=== PATIENT | male | born 1925 | race Caucasian/White ===

== ENCOUNTER 2016-03-09 10:57 | Inpatient (IN) | payer MEDICARE, BC ==
[~2016-03-09] VITALS: Ht 185.4 cm; Wt 80.8 kg
[2016-03-09] MEDS ORDERED: ONDANSETRON 4 MG VIAL ONE (13:57)
[2016-03-09] MEDS ORDERED: SODIUM CHLORIDE 0.9% 1,000 ML ONE (13:57)
[2016-03-09] MEDS ORDERED: SALINE FLUSH 10 ML FLUSH PRN (17:55)
[2016-03-09] MEDS ORDERED: ONDANSETRON 4 MG VIAL IV PRN (17:55)
[2016-03-09] MEDS ORDERED: SODIUM CHLORIDE 0.9% 1,000 ML IV ONE (17:55)
[2016-03-09 19:06] VITALS: BP_SYST 152; BP_SYST 92; RESP 18; TEMP 97.8
[2016-03-09] MEDS ORDERED: Flu Vaccine Quadrivalent 60 MCG/0.5 ML IM.VACC ONE (20:00)
[2016-03-09] MEDS: METRONIDAZOLE 500MG/100ML 100 ML IV SCH (20:27)
[2016-03-09] MEDS ORDERED: TRAMADOL 50 MG TAB ONE (22:09)
[2016-03-09] MEDS: SALINE FLUSH 10 ML FLUSH SCH (22:36)
[2016-03-09] MEDS: ASA/DIPYRIDAMOLE 25/200 CAP PO SCH (22:37)
[2016-03-09] MEDS: DEMECLOCYCLINE 150 MG TAB PO SCH (22:38)
[2016-03-09] MEDS ORDERED: MISSING DOSE XX ONE (22:45)
[2016-03-09 22:47] VITALS: RESP 22
[2016-03-09] MEDS: CILOSTAZOL 100 MG TAB PO SCH (23:45)
[2016-03-10] VITALS (8 sets, daily range): BP systolic 138–160; RESP 16–20; TEMP 97.2–97.9; Ht 185.4 cm; Wt 80.8 kg
[2016-03-10] MEDS: METRONIDAZOLE 500MG/100ML 100 ML IV SCH ×5 (01:09→22:58)
[2016-03-10] MEDS: SODIUM CHLORIDE 0.9% 1,000 ML IV SCH ×2 (01:09→15:58)
[2016-03-10] MEDS: SODIUM CHLORIDE 0.9% FLUSH BAG 500 ML IV SCH (06:00)
[2016-03-10] MEDS: PANTOPRAZOLE 40 MG TAB PO SCH (06:16)
[2016-03-10] MEDS: SALINE FLUSH 10 ML FLUSH SCH ×2 (08:00→20:00)
[2016-03-10] MEDS ORDERED: TRAZODONE 50 MG TAB PO SCH (09:00)
[2016-03-10] MEDS: CILOSTAZOL 100 MG TAB PO SCH ×2 (10:16→20:58)
[2016-03-10] MEDS: ASA/DIPYRIDAMOLE 25/200 CAP PO SCH ×2 (10:17→20:58)
[2016-03-10] MEDS: DEMECLOCYCLINE 150 MG TAB PO SCH ×3 (10:17→21:00)
[2016-03-10] MEDS: TRAMADOL 50 MG TAB PO PRN (12:11)
[2016-03-10] MEDS ORDERED: ACETAMINOPHEN E.R. 650 MG TAB PO SCH (21:00)
[2016-03-10] MEDS ORDERED: ACETAMINOPHEN 325 MG TAB PO PRN (21:00)
[2016-03-11] MEDS: SODIUM CHLORIDE 0.9% 1,000 ML IV SCH (01:35)
[2016-03-11] MEDS: TRAMADOL 50 MG TAB PO PRN (01:37)
[2016-03-11 03:32] VITALS: BP_SYST 152; RESP 16; TEMP 97.5
[2016-03-11] MEDS: SODIUM CHLORIDE 0.9% FLUSH BAG 500 ML IV SCH (06:00)
[2016-03-11] MEDS: METRONIDAZOLE 500MG/100ML 100 ML IV SCH ×2 (06:25→12:25)
[2016-03-11] MEDS: PANTOPRAZOLE 40 MG TAB PO SCH (06:25)
[2016-03-11] MEDS: SALINE FLUSH 10 ML FLUSH SCH (08:00)
[2016-03-11] MEDS: CILOSTAZOL 100 MG TAB PO SCH (08:06)
[2016-03-11 08:07] VITALS: BP_SYST 122; RESP 20; TEMP 97.8
[2016-03-11] MEDS: DEMECLOCYCLINE 150 MG TAB PO SCH (08:07)
[2016-03-11] MEDS: ASA/DIPYRIDAMOLE 25/200 CAP PO SCH (08:07)
[2016-03-11 11:05] VITALS: BP_SYST 154
[2016-03-11 11:06] VITALS: RESP 16; TEMP 97.7
[2016-03-11 12:52] VITALS: BP_SYST 152; BP_SYST 154; RESP 16; RESP 18; TEMP 97.7
[2016-03-11 13:00] VITALS: BP_SYST 152; RESP 18; TEMP 97.7
== END 2016-03-11 14:18 | disposition home or self-care (01) | DRG 392 ==
LOC: ENRESERVTM → ENRESERVDT → ER 10:57 → EMR 18:02 → 3NT 19:08 → ENPENDDIS 03-11 09:47 → OBSVTOIN 03-11 09:47
PROVIDERS: ADMIT Internal Medicine; ATTEND Internal Medicine
CPT/HCPCS: 36415; 71010; 80053; 81001; 82553; 84484; 85025; 87040; 87045; 87046; 87088; 87493; 94799; 96361; 96374; 99219; 99232; 99239

== ENCOUNTER 2016-03-29 09:53 | Inpatient (IN) | payer MEDICARE, BC ==
[~2016-03-29] VITALS: Ht 182.9 cm; Wt 81.4 kg
[2016-03-29 13:29] VITALS: BP_SYST 118; BP_SYST 120; RESP 18; TEMP 97.9
[2016-03-29 13:32] VITALS: BMI 23.0
[2016-03-29] MEDS ORDERED: LIDOCAINE 2% SYR 5 ML IV ONE (13:50)
[2016-03-29] MEDS ORDERED: PROPOFOL 50ML VIAL IV ONE (13:50)
[2016-03-29] MEDS ORDERED: SALINE FLUSH 10 ML FLUSH PRN (14:15)
[2016-03-29] MEDS ORDERED: ACETAMINOPHEN 1,000 MG/100 ML IV PRN (14:15)
[2016-03-29] MEDS ORDERED: METOCLOPRAMIDE 10 MG/2 ML VIAL IV PUSH PRN (14:15)
[2016-03-29] MEDS ORDERED: ONDANSETRON 4 MG VIAL IV PRN (14:15)
[2016-03-29] MEDS: FLUTICASONE 0.05% NA BTL NARE EACH SCH ×2 (14:29→21:09)
[2016-03-29] MEDS: PANTOPRAZOLE 40 MG VIAL IV SCH (15:46)
[2016-03-29] MEDS: DEXTROSE 5% SALINE 0.9% 1,000 ML IV SCH (15:46)
[2016-03-29 16:01] VITALS: BP_SYST 123; RESP 16; TEMP 98.3
[2016-03-29 16:49] VITALS: RESP 16
[2016-03-29] MEDS: SODIUM CHLORIDE 0.9% 500 ML IV SCH ×2 (19:10→21:09)
[2016-03-29 19:22] VITALS: BP_SYST 134; RESP 18; TEMP 98.1
[2016-03-29] MEDS: SALINE FLUSH 10 ML FLUSH SCH (20:00)
[2016-03-29 23:53] VITALS: BP_SYST 135; RESP 18; TEMP 97.9
[2016-03-30] MEDS ORDERED: MISSING DOSE XX ONE
[2016-03-30] MEDS: DEXTROSE 5% SALINE 0.9% 1,000 ML IV SCH ×2 (00:30→10:43)
[2016-03-30] MEDS ORDERED: ZOLPIDEM 5 MG TAB PO PRN (01:05)
[2016-03-30 04:02] VITALS: BP_SYST 116; RESP 18; TEMP 98.1
[2016-03-30] MEDS: SODIUM CHLORIDE 0.9% FLUSH BAG 500 ML IV SCH ×2 (05:22→23:58)
[2016-03-30 07:03] VITALS: BP_SYST 120; RESP 16; TEMP 98
[2016-03-30] MEDS: SALINE FLUSH 10 ML FLUSH SCH ×2 (07:40→20:00)
[2016-03-30] MEDS: FLUTICASONE 0.05% NA BTL NARE EACH SCH ×2 (09:26→20:01)
[2016-03-30] MEDS: PANTOPRAZOLE 40 MG VIAL IV SCH (09:26)
[2016-03-30] MEDS: ENOXAPARIN 30 MG/0.3 ML SYR SUBQ SCH (09:27)
[2016-03-30 10:36] VITALS: BP_SYST 116; RESP 16; TEMP 98
[2016-03-30 11:25] VITALS: Ht 182.9 cm; Wt 81.4 kg
[2016-03-30 15:47] VITALS: BP_SYST 126; RESP 18; TEMP 97.7
[2016-03-30] MEDS: DEXTROSE 5% SALINE 0.45% 1,000 ML IV SCH (15:50)
[2016-03-30] MEDS: CEFTRIAXONE 1 GM in SODIUM CHLORIDE 0.9% 50 ML IV SCH (17:59)
[2016-03-30 19:20] VITALS: BP_SYST 128; RESP 16; TEMP 99
[2016-03-30] MEDS: ROPINIROLE 0.25 MG TAB PO SCH (22:32)
[2016-03-31] VITALS (7 sets, daily range): BP systolic 108–126; RESP 18–20; TEMP 97.5–99.8
[2016-03-31] MEDS: DEXTROSE 5% SALINE 0.45% 1,000 ML IV SCH (10:28)
[2016-03-31] MEDS: CEFTRIAXONE 1 GM in SODIUM CHLORIDE 0.9% 50 ML IV SCH (10:32)
[2016-03-31] MEDS: PANTOPRAZOLE 40 MG VIAL IV SCH (10:34)
[2016-03-31] MEDS: SALINE FLUSH 10 ML FLUSH SCH ×2 (10:34→20:00)
[2016-03-31] MEDS: FLUTICASONE 0.05% NA BTL NARE EACH SCH ×2 (10:35→20:02)
[2016-03-31] MEDS: ENOXAPARIN 30 MG/0.3 ML SYR SUBQ SCH (10:37)
[2016-03-31] MEDS: DEXTROSE 5% 1,000 ML IV SCH (13:01)
[2016-03-31] MEDS: ROPINIROLE 0.25 MG TAB PO SCH (20:02)
[2016-04-01 03:02] VITALS: BP_SYST 121; RESP 20; TEMP 98.2
[2016-04-01] MEDS: SODIUM CHLORIDE 0.9% FLUSH BAG 500 ML IV SCH (06:00)
[2016-04-01 07:07] VITALS: BP_SYST 119; RESP 24; TEMP 98
[2016-04-01] MEDS: SALINE FLUSH 10 ML FLUSH SCH ×2 (08:00→19:34)
[2016-04-01] MEDS: DEXTROSE 5% 1,000 ML IV SCH (08:27)
[2016-04-01] MEDS: CEFTRIAXONE 1 GM in SODIUM CHLORIDE 0.9% 50 ML IV SCH (08:27)
[2016-04-01] MEDS: FLUTICASONE 0.05% NA BTL NARE EACH SCH ×2 (08:28→20:31)
[2016-04-01] MEDS: PANTOPRAZOLE 40 MG VIAL IV SCH (08:28)
[2016-04-01] MEDS: ENOXAPARIN 30 MG/0.3 ML SYR SUBQ SCH (08:29)
[2016-04-01 11:14] VITALS: BP_SYST 113; RESP 20; TEMP 97.9
[2016-04-01 14:44] VITALS: BP_SYST 119; RESP 20; TEMP 98.1
[2016-04-01] MEDS: MAGNESIUM SULF 1 GM/100 ML 100 ML IV SCH ×2 (18:30→19:55)
[2016-04-01 19:14] VITALS: BP_SYST 123; RESP 20; TEMP 98
[2016-04-01] MEDS: ROPINIROLE 0.25 MG TAB PO SCH (20:32)
[2016-04-01 23:35] VITALS: BP_SYST 136; RESP 20; TEMP 98.3
[2016-04-02] VITALS (15 sets, daily range): BP systolic 69–155; RESP 14–27; TEMP 96.9–98.2
[2016-04-02] MEDS: SODIUM CHLORIDE 0.9% FLUSH BAG 500 ML IV SCH (05:36)
[2016-04-02] MEDS ORDERED: PANTOPRAZOLE 40 MG TAB PO SCH (07:00)
[2016-04-02] MEDS ORDERED: DEXTROSE 5% 1,000 ML IV SCH (08:35)
[2016-04-02] MEDS: CEFTRIAXONE 1 GM in SODIUM CHLORIDE 0.9% 50 ML IV SCH (09:08)
[2016-04-02] MEDS: SALINE FLUSH 10 ML FLUSH SCH (09:09)
[2016-04-02] MEDS ORDERED: DESMOPRESSIN 0.1 MG TAB PO ONE (12:05)
[2016-04-02] MEDS: FLUTICASONE 0.05% NA BTL NARE EACH SCH (13:02)
[2016-04-02] MEDS: ENOXAPARIN 30 MG/0.3 ML SYR SUBQ SCH (13:10)
== END 2016-04-02 16:52 | disposition home or self-care (01) | DRG 683 ==
LOC: ENRESERVTM → ENRESERVDT → 4NT 13:06 → OBSVTOIN 19:11 → ENPENDDIS 19:11
PROVIDERS: ADMIT Internal Medicine; ATTEND Internal Medicine
PROC: 0DB68ZX Excision of Stomach, Via Natural or Artificial Opening Endoscopic, Diagnostic (ICD-10-PCS; 2016-04-02)
PROC: 0DB58ZX Excision of Esophagus, Via Natural or Artificial Opening Endoscopic, Diagnostic (ICD-10-PCS; principal; 2016-04-02 10:35)
DX: N17.9 Acute kidney failure, unspecified (principal); E22.2 Syndrome of inappropriate secretion of antidiuretic hormone; E87.0 Hyperosmolality and hypernatremia; E88.09 Other disorders of plasma-protein metabolism, not elsewhere classified; E86.0 Dehydration; B17.9 Acute viral hepatitis, unspecified; I12.9 Hypertensive chronic kidney disease with stage 1 through stage 4 chronic kidney disease, or unspecified chronic kidney disease; N18.9 Chronic kidney disease, unspecified; R63.4 Abnormal weight loss; Z68.22 Body mass index [BMI] 22.0-22.9, adult; K21.9 Gastro-esophageal reflux disease without esophagitis; G47.00 Insomnia, unspecified; R19.7 Diarrhea, unspecified; Z86.73 Personal history of transient ischemic attack (TIA), and cerebral infarction without residual deficits; K20.9 Esophagitis, unspecified; K29.80 Duodenitis without bleeding
CPT/HCPCS: 74220; 76705; 80048; 80053; 81001; 82570; 83605; 83690; 83735; 83880; 84100; 84300; 85025; 85652; 86141; 86704; 86705; 86706; 86708; 86709; 87077; 87088; 87186; 88305; 94664; 94799; 99222; 99232; 99233; 99238

== ENCOUNTER 2016-04-15 09:57 | Inpatient (IN) | payer MEDICARE, BC ==
[~2016-04-15] VITALS: Ht 185.4 cm; Wt 83.7 kg
[2016-04-15] MEDS ORDERED: SODIUM CHLORIDE 0.9% 1,000 ML ONE (11:47)
[2016-04-15] MEDS ORDERED: SODIUM CHLORIDE 0.9% 500 ML IV ONE (14:48)
[2016-04-15] MEDS ORDERED: SALINE FLUSH 10 ML FLUSH PRN (17:55)
[2016-04-15] MEDS ORDERED: BISACODYL EC 5 MG TAB PO PRN (17:55)
[2016-04-15] MEDS ORDERED: ALU/MAG/SIM 30 ML UDC PO PRN (17:55)
[2016-04-15] MEDS ORDERED: BISACODYL 10 MG SUPP RECTAL PRN (17:55)
[2016-04-15] MEDS ORDERED: MAG HYDROX 30 ML UDC PO PRN (17:55)
[2016-04-15] MEDS ORDERED: OXYCODONE 5 MG TAB PO PRN (17:55)
[2016-04-15] MEDS ORDERED: ONDANSETRON 4 MG VIAL IV PRN (17:55)
[2016-04-15] MEDS ORDERED: TRAMADOL 50 MG TAB PO PRN (17:55)
[2016-04-15] MEDS ORDERED: ACETAMINOPHEN 325 MG TAB PO PRN (17:55)
[2016-04-15 20:23] VITALS: BP_SYST 118; BP_SYST 128; RESP 18; TEMP 97.7
[2016-04-15] MEDS ORDERED: ROPINIROLE 0.25 MG TAB PO SCH (21:00)
[2016-04-15] MEDS: LACT RINGERS 1,000 ML IV SCH (22:23)
[2016-04-15] MEDS: TRAZODONE 50 MG TAB PO SCH (22:23)
[2016-04-15] MEDS: SALINE FLUSH 10 ML FLUSH SCH (22:24)
[2016-04-15] MEDS: MEGESTROL ACE 40 MG TAB PO SCH (22:25)
[2016-04-15] MEDS: ASA/DIPYRIDAMOLE 25/200 CAP PO SCH (22:26)
[2016-04-15] MEDS: FAMOTIDINE 20 MG TAB PO SCH (22:26)
[2016-04-15] MEDS: FLUTICASONE 0.05% NA BTL NARE EACH SCH (22:29)
[2016-04-15 23:14] VITALS: BP_SYST 138; RESP 18; TEMP 98.1
[2016-04-16] VITALS (7 sets, daily range): BP systolic 91–160; RESP 16–18; TEMP 97.3–98.4; Ht 185.4 cm; Wt 83.7 kg
[2016-04-16] MEDS ORDERED: SODIUM CHLORIDE 0.9% FLUSH BAG 500 ML IV SCH (06:00)
[2016-04-16] MEDS: SALINE FLUSH 10 ML FLUSH SCH (08:00)
[2016-04-16] MEDS: FLUTICASONE 0.05% NA BTL NARE EACH SCH (08:51)
[2016-04-16] MEDS: ASA/DIPYRIDAMOLE 25/200 CAP PO SCH (08:51)
[2016-04-16] MEDS: FAMOTIDINE 20 MG TAB PO SCH (08:51)
[2016-04-16] MEDS: MEGESTROL ACE 40 MG TAB PO SCH (08:51)
[2016-04-16] MEDS: TRAZODONE 50 MG TAB PO SCH (08:52)
[2016-04-16] MEDS: LACT RINGERS 1,000 ML IV SCH (11:32)
[2016-04-16] MEDS ORDERED: IRON SUCROSE COMPLEX 500 MG in SODIUM CHLORIDE 0.9% 250 ML IV ONE (11:55)
[2016-04-16] MEDS: MAGNESIUM SULF 1 GM/100 ML 100 ML IV SCH ×2 (12:58→15:10)
== END 2016-04-16 19:00 | DRG 641 ==
LOC: ENRESERVDT → ENRESERVTM → ER 09:57 → EMR 18:55 → ENPENDDIS 18:55 → 4NT 20:21
PROVIDERS: ADMIT Internal Medicine; ATTEND Internal Medicine
DX: E86.0 Dehydration (principal); E22.2 Syndrome of inappropriate secretion of antidiuretic hormone; N18.3 Chronic kidney disease, stage 3 (moderate); I73.9 Peripheral vascular disease, unspecified; I95.1 Orthostatic hypotension; D50.9 Iron deficiency anemia, unspecified; I12.9 Hypertensive chronic kidney disease with stage 1 through stage 4 chronic kidney disease, or unspecified chronic kidney disease; E83.39 Other disorders of phosphorus metabolism; M16.12 Unilateral primary osteoarthritis, left hip; R26.9 Unspecified abnormalities of gait and mobility; G25.81 Restless legs syndrome; Z86.73 Personal history of transient ischemic attack (TIA), and cerebral infarction without residual deficits; Z85.828 Personal history of other malignant neoplasm of skin
CPT/HCPCS: 36415; 80053; 81001; 82274; 82607; 82746; 82947; 83540; 83735; 83880; 84100; 84439; 84443; 84466; 85025; 93005; 94799; 96360; 96361